=== PATIENT | female | born 1935 | race Caucasian/White ===

== ENCOUNTER 2018-12-24 19:15 | Inpatient (IN) | payer MEDICARE ==
[~2018-12-24] VITALS: Ht 170.2 cm; Wt 59.0 kg
[~2018-12-24 19:15] MED LIST changes: -IOPAMIDOL 370 MG/ML 200 ML INFUS..BTL INJ ONE; -SODIUM CHLORIDE 0.9% 50ML 50 ML ONE; -XARELTO15 MG PO; -XARELTO20 MG PO
--- OUTSIDE RECORDS SUMMARY | 2018-12-24 19:17 | XMS REPORT ---
Author [facility] Address Unknown Phone Unavailable Care Team Providers Care Mechanical Manufacturing Technician Name Role Phone Marcela CHOPRA Unavailable Unavailable Problems This patient has no known problems. Allergies, Adverse Reactions, Alerts This patient has no known allergies or adverse reactions. Medications This patient has no known medications. Results Test Description Test Time Test Comments Text Results Atomic Results Result Comments CT CHEST W 2018-12-24 18:15:00 [place] [address] Patient Name: DEYANIRA FRIEND MR #: [id number] : 1935 Age/Sex: 83/F Req #: [id number] Adm Physician: Ordered by: KAVON CHOPRA MD Report #: [id number] Location: CT Room/Bed: Procedure: [id number] CT/CT CHEST W Exam Date: 12/24/18 Exam Time: 1800 REPORT STATUS: Signed CT CHEST WITH CONTRAST HISTORY: Tachycardia, history of blood clot in left leg, small cell lung cancer, history of appendectomy and hysterectomy COMPARISON: None available. TECHNIQUE: CT scan of the chest WITH intravenous contrast, using PE protocol. The chest was scanned utilizing a multidetector helical scanner from the lung apex through the level of the adrenal glands. Thin section reconstructions were obtained with special concentration on the pulmonary arteries. IV CONTRAST: 100 cc of Isovue-370. PROTOCOL: PE RADIATION DOSE: Total DLP: 454.57 mGy*cm Dose modulation, iterative reconstruction, and/or weight based adjustment of the mA/kV was utilized to reduce the radiation dose to as low as reasonably achievable. COMPLICATIONS: None DISCUSSION: Lungs: * Mild to moderate bilateral upper lung zone predominant centrilobular emphysema. * A confluent 4.8 cm (AP) x 4.1 cm (ML) x 1.7 cm (CC) density within the right lower lobe with irregular margins. * A confluent 2.6 cm (AP) x 3.7 cm (ML) x 2.3 cm (CC) density at the posterior left lung apex abutting the pleural surface with irregular margins and adjacent architectural distortion and bronchiectasis. * Patchy airspace consolidation at the dependent portion of the inferior left lower lobe. Vessels: * Filling defects within arteries within multiple left lower lobe segmental and subsegmental pulmonary arteries on the majority are nonocclusive. * Scattered atherosclerotic vascular calcifications, including the coronary arteries. Airways: Nonspecific bronchial wall thickening. Pleura: Small low-density left pleural effusion. Heart and mediastinum: Trace pericardial fluid, within physiologic limits. Abdomen: Limited evaluation of the upper abdomen. Multiple fluid densities within the liver, the largest 1.5 cm within the left lobe and additional too small to characterize hypodensities, statistically most likely additional small cysts. Splenomegaly. Lymph nodes: No pathologically enlarged lymph node. Bones: Diffusely decreased mineralization of the osseous structures limits bone detail. Multifocal degenerative changes. No aggressive osseous lesion. Soft tissues: Unremarkable IMPRESSION: 1. Pulmonary emboli within segmental and subsegmental arteries of the left lower lobe. 2. Left lower lobe patchy airspace opacity and adjacent small effusion, may reflect an area of associated evolving pulmonary infarction. 3. Indeterminant confluent mass like densities within the right lower lobe and posterior aspect of the left upper lobe, after resolution of the acute process, recommend short-term surveillance follow-up CT to evaluate for resolution. The differential diagnosis includes scarring, evolving infectious/inflammatory process, local recurrence or metastatic disease. 4. Coronary atherosclerosis. A contact phone number for the ordering provider was not easily accessible by the hospital radiology staff. Therefore, Dr. Gordon from the Emergency Department was notified via phone on December 24, 2018 at 1852, per request, the technologists were subsequently asked to transport the patient to the Emergency Department for a higher level of monitoring and subsequent treatment per the Emergency Department. Signed by: Dr. Karime Bower D.O., M.M.M. on 12/24/2018 6:57 PM Dictated By: KARIME BOWER DO 56 Transcribed By: SHAHAB on 12/24/181856 COPY TO: KAVON CHOPRA MD
--- OUTSIDE RECORDS SUMMARY | 2018-12-24 19:17 | XMS REPORT | Clinical Summary ---
Author Author [facility] Address Unknown Phone Unavailable Care Team Providers Care Pvc Monitor Name Role Phone Nate Mcneil MD PCP Allergies Comments Active Allergy Reactions Severity Noted Date Penicillins 06/06/2018 Sulfa (Sulfonamide 06/06/2018 Antibiotics) Medications End Date Status Medication Sig Dispensed Refills Start Date Active lisinopril Take 5 mg by 0 (PRINIVIL,ZESTRIL) 5 mg mouth daily. tablet 07/07/2018 atorvastatin (LIPITOR) 10 Take 1 tablet 30 tablet 0 MG tablet (10 mg total) 8 by mouth nightly for 30 days. 07/08/2018 pantoprazole (PROTONIX) Take 1 tablet 30 tablet 0 40 MG EC tablet (40 mg total) 8 by mouth daily for 30 days. 07/08/2018 isosorbide mononitrate Take 1 tablet 30 tablet 0 (IMDUR) 30 MG 24 hr (30 mg total) 8 tablet by mouth daily for 30 days. 06/11/2018 azithromycin (ZITHROMAX) Take 2 6 tablet 0 250 MG tablet tablets the 8 first day, then 1 tablet daily for 4 days. Active Problems Problem Noted Date Chest pain 06/06/2018 Encounters Care Team Description Date Type Specialty Adelia Montalvo MD Kohlnhofer, Matthew, MD Teqwimuah, Remy, DO Chest pain, unspecified type (Primary Dx) 06/06/2018 Emergency General Internal Medicine - 06/07/2018 after 12/23/2017 Family History Medical History Relation Name Comments Heart disease Brother Anemia Father No Known Problems Mother Relation Name Status Comments Brother Father Mother Social History Date Tobacco Use Types Packs/Day Years Used Quit: 09/14/2012 Former Smoker Smokeless Tobacco: Never Used Alcohol Use Drinks/Week oz/Week Comments Defer Sex Assigned at Date Recorded Not on file Industry Job Start Date Occupation Not on file Not on file Not on file Travel End Travel History Travel Start No recent travel history available. Last Filed Vital Signs Time Taken Vital Sign Reading 06/07/2018 11:50 AM CDT Blood Pressure 108/55 06/07/2018 11:50 AM CDT Pulse 81 06/07/2018 11:50 AM CDT Temperature 36.6 C (97.9 F) 06/07/2018 11:50 AM CDT Respiratory Rate 17 06/07/2018 11:50 AM CDT Oxygen Saturation 98% - Inhaled Oxygen - Concentration 06/06/2018 6:47 AM CDT Weight 27.4 kg (60 lb 4.8 oz) 06/06/2018 6:47 AM CDT Height 167.6 cm (5' 6") 06/06/2018 6:47 AM CDT Body Mass Index 9.73 Plan of Treatment Health Maintenance Due Date Last Done Comments SHINGLES VACCINES (#1) 1987 65+ PNEUMOCOCCAL VACCINE 2002 (1 of 2 - PCV13) PNEUMOCOCCAL 2002 POLYSACCHARIDE VACCINE AGE 65 AND OVER INFLUENZA VACCINE 05/08/2018 Procedures Comments Procedure Name Priority Date/Time Associated Diagnosis NM MYOCARDIAL PERFUSION Routine 06/07/2018 REST STRESS 1 DAY 11:01 AM CDT CV STRESS TEST NUCLEAR Routine 06/07/2018 CARDIO 11:01 AM CDT ECG 12-LEAD Routine 06/07/2018 6:55 AM CDT ZZESTIMATED GFR Routine 06/07/2018 4:30 AM CDT HC COMPLETE BLD COUNT Routine 06/07/2018 W/AUTO DIFF 4:30 AM CDT BASIC METABOLIC PANEL Routine 06/07/2018 4:30 AM CDT ECG 12-LEAD Routine 06/06/2018 5:00 PM CDT ECHOCARDIOGRAM 2D Routine 06/06/2018 COMPLETE W MMODE SPECTRAL 4:35 PM CDT COLOR DOPPLER ([id number]) TROPONIN Timed 06/06/2018 2:49 PM CDT ECG 12-LEAD Routine 06/06/2018 12:33 PM CDT TROPONIN Timed 06/06/2018 10:47 AM CDT URINALYSIS SCREEN AND Routine 06/06/2018 MICROSCOPY, WITH REFLEX 8:[address] TO CULTURE [address] ANGIOGRAM PE CHEST STAT 06/06/2018 8:28 AM CDT XR CHEST 1 VW PORTABLE STAT 06/06/2018 7:05 AM CDT LIPID PANEL Routine 06/06/2018 6:48 AM CDT TROPONIN STAT 06/06/2018 6:48 AM CDT MANUAL DIFFERENTIAL STAT 06/06/2018 6:48 AM CDT ZZESTIMATED GFR STAT 06/06/2018 6:48 AM CDT B NATRIURETIC PEPTIDE STAT 06/06/2018 6:48 AM CDT COMPREHENSIVE METABOLIC STAT 06/06/2018 PANEL 6:48 AM CDT CREATINE KINASE, TOTAL STAT 06/06/2018 (CPK) 6:48 AM CDT D-DIMER STAT 06/06/2018 6:48 AM CDT CBC WITH PLATELET AND STAT 06/06/2018 DIFFERENTIAL 6:48 AM CDT ECG 12-LEAD STAT 06/06/2018 6:41 AM CDT ECG ED PRELIMINARY Routine 06/06/2018 INTERPRETATION 6:37 AM CDT after 12/23/2017 Results * Cv stress procedure (06/07/2018 11:01 AM CDT) Resting HR 83 [facility] Resting BP 121 [facility] Peak MET Achieved 1.0 [facility] Protocol Name KARINA [facility] MUSE Time in Exercise Phase 00:01:00 [facility] Max Systolic BP 133 [facility] Max Diastolic BP 57 [facility] Max Heart Rate 105 [facility] Max Predicted Heart Rate 139 [facility] Target HR Formula (220 - Age)*100% [facility] Test Indication [facility] Arrhy During Ex [facility] ECG Interp Before EX [facility] ECG Interp During Ex [facility] Ex Summary Comment [facility] MUSE Overall HR Response to [facility] Exercise Overall BP Response To [facility] Exercise Reason for Termination [facility] Stress Test Impression -Waveform interpreted in [facility] MUSE report associated with image study. No interpretation is provided as part of this Stress ECG report.- Performing Organization Address [facility] Phone Number [facility] MUSE [address] [place] [address] * Myocardial perfusion (06/07/2018 11:01 AM CDT) Target HR 118.15 bpm [facility] Resting HR 83 BPM [facility] Resting BP 121/60 mmHg [facility] Narrative Performed At [facility] There are no perfusion defects. The study is normal. Study Quality: good. SPECT images demonstrate a normal perfusion study. Normal left ventricular systolic function. Performing Organization Address [facility] Phone Number [facility] [address] [place] [address] * ECG 12 lead (06/07/2018 6:55 AM CDT) Only the most recent of 4 results within the time period is included. Ventricular rate 85 [facility] Atrial rate 85 [facility] IN interval 160 [facility] QRSD interval 114 [facility] QT interval 414 [facility] QTC interval 492 [facility] P axis 1 55 [facility] QRS axis 1 -52 [facility] T wave axis 165 [facility] MUSE EKG impression Normal sinus rhythm-Left axis [facility] MUSE deviation-Left ventricular hypertrophy with repolarization abnormality-Inferior infarct (cited on or before 06-JUN-2018)-Anteroseptal infarct (cited on or before 06-JUN-2018)-Abnormal ECG- Performing Organization Address City/State/Zipcode Phone Number [facility] [address] [place] [address] * Estimated GFR (06/07/2018 4:30 AM CDT) Only the most recent of 2 results within the time period is included. GFR Non Af Amer >90 mL/min/1.73 m2 [facility] DEPARTMENT OF PATHOLOGY AND GENOMIC MEDICINE GFR Af Amer >90 mL/min/1.73 m2 [facility] DEPARTMENT OF Comment: PATHOLOGY AND Chronic kidney disease: <60 GENOMIC MEDICINE mL/min/1.73m2 Kidney failure: <15 mL/min/1.73m2 The estimated GFR is calculated from the IDMS-traceable Modification of Diet in Renal Disease Equation. The accuracy of the calculation is poor when the creatinine is normal. Calculated values >90 mL/min/1.73m2 are not reported. This equation has not been validated in children (<18 years), women, the elderly (>70 years), or ethnic groups other than Caucasians and Americans. Specimen Plasma specimen Performing Organization Address City/State/Zipcode Phone Number [facility] [address] [place] [address] PATHOLOGY AND [facility] * CBC with platelet and differential (06/07/2018 4:30 AM CDT) Only the most recent of 2 results within the time period is included. WBC 18.01 (H) 4.50 - 11.00 k/uL [facility] DEPARTMENT OF PATHOLOGY AND GENOMIC MEDICINE RBC 6.07 (H) 4.20 - 5.50 m/uL [facility] DEPARTMENT OF PATHOLOGY AND GENOMIC MEDICINE HGB 16.8 (H) 12.0 - 16.0 g/dL [facility] DEPARTMENT OF PATHOLOGY AND GENOMIC MEDICINE HCT 51.7 (H) 37.0 - 47.0 % [facility] DEPARTMENT OF PATHOLOGY AND GENOMIC MEDICINE MCV 85.2 82.0 - 100.0 fL [facility] DEPARTMENT OF PATHOLOGY AND GENOMIC MEDICINE MCH 27.7 27.0 - 34.0 pg [facility] DEPARTMENT OF PATHOLOGY AND GENOMIC MEDICINE MCHC 32.5 31.0 - 37.0 g/dL [facility] DEPARTMENT OF PATHOLOGY AND GENOMIC MEDICINE RDW - SD 47.0 37.0 - 55.0 fL [facility] DEPARTMENT OF PATHOLOGY AND GENOMIC MEDICINE MPV 10.4 8.8 - 13.2 fL [facility] DEPARTMENT OF PATHOLOGY AND GENOMIC MEDICINE Platelet count 327 150 - 400 k/uL [facility] DEPARTMENT OF PATHOLOGY AND GENOMIC MEDICINE Nucleated RBC 0.00 /100 WBC [facility] DEPARTMENT OF PATHOLOGY AND GENOMIC MEDICINE Neutrophils 77.0 (H) 39.0 - 69.0 % [facility] DEPARTMENT OF PATHOLOGY AND GENOMIC MEDICINE Lymphocytes 4.6 (L) 25.0 - 45.0 % [facility] DEPARTMENT OF PATHOLOGY AND GENOMIC MEDICINE Monocytes 9.6 0.0 - 10.0 % [facility] DEPARTMENT OF PATHOLOGY AND GENOMIC MEDICINE Eosinophils 3.4 0.0 - 5.0 % [facility] DEPARTMENT OF PATHOLOGY AND GENOMIC MEDICINE Basophils 0.8 0.0 - 1.0 % [facility] DEPARTMENT PATHOLOGY AND GENOMIC MEDICINE Specimen Blood Performing Organization Address City/[facility] Phone Number [address] [place] [address] PATHOLOGY [facility] * Basic metabolic panel (06/07/2018 4:30 AM CDT) Sodium 143 135 - 148 mEq/L [facility] DEPARTMENT OF PATHOLOGY AND GENOMIC MEDICINE Potassium 4.3 3.5 - 5.0 mEq/L [facility] DEPARTMENT OF PATHOLOGY AND GENOMIC MEDICINE Chloride 108 98 - 112 mEq/L [facility] DEPARTMENT OF PATHOLOGY AND GENOMIC MEDICINE CO2 23 (L) 24 - 31 mEq/L [facility] DEPARTMENT OF PATHOLOGY AND GENOMIC MEDICINE Anion gap 12@ANIO 7 - 15 mEq/L [facility] DEPARTMENT OF PATHOLOGY AND GENOMIC MEDICINE BUN 15 8 - 23 mg/dL [facility] DEPARTMENT OF PATHOLOGY AND GENOMIC MEDICINE Creatinine 0.6 0.5 - 0.9 mg/dL [facility] DEPARTMENT OF PATHOLOGY AND GENOMIC MEDICINE Glucose 100 (H) 65 - 99 mg/dL [facility] DEPARTMENT PATHOLOGY AND GENOMIC MEDICINE Calcium 9.0 8.8 - 10.2 mg/dL [facility] DEPARTMENT PATHOLOGY AND GENOMIC MEDICINE Specimen Plasma specimen Performing Organization Address [facility] Phone Number [address] * Echocardiogram complete w contrast and 3D if needed (06/06/2018 4:35 PM CDT) Velocity Ratio (V1/V2) 0.94 m/s [facility] IVS,d 1.38 cm [facility] Ao root annulus 3.23 cm [facility] EF 62.37 % [facility] LVPWD,d 1.01 cm [facility] AoV Mean PG 2.54 mmHg [facility] AV LVOT peak gradient 3.64 mmHg [facility] MV valve area p 1/2 4.50 cm2 [facility] method E/A ratio 0.58 [facility] E wave decelartion time 144.41 msec [facility] LVOT Diam,S 1.90 cm [facility] LVOT area 2.83 cm2 [facility] LVOT Vmax 0.95 m/s [facility] LVOT VTI 0.20 m [facility] AoV Peak PG 4.07 mmHg [facility] MV Peak E Joel 0.69 m/s [facility] MV stenosis pressure 1/2 48.94 ms [facility] time MV Peak A Joel 1.19 m/s [facility] AoV Area, Vmax 2.67 cm2 [facility] AoV Area, VTI 2.64 cm2 [facility] AoV Vmax 1.01 m/s [facility] LV,d 2.54 cm [facility] LV,s 1.72 cm [facility] RVSP (TR) 21.94 mmHg [facility] TR Vpeak 2.06 mm/s [facility] MV E A ratio 0.58 mmHg [facility] RA pressure 5.00 mmHg [facility] TR pk grad 16.94 mmHg [facility] RVSP 31.94 mmHg [facility] LV SYS VOL 8.70 ml [facility] LV ESCOTO VOL 23.12 ml [facility] LA diam s 2.80 cm [facility] LV SV Teich 2D 14.42 ml [facility] LVOT SI 30.25 ml/m2 [facility] AoV Cusp sep 1.67 [facility] Aortic Root 3.20 cm [facility] AoV Vmn 0.77 [facility] IVS s 2D 1.53 [facility] LA Ao Ratio Mmode 0.86 [facility] D E excurs 1.10 [facility] E f slope 0.07 [facility] E prime lat 0.04 [facility] E nasim sept 0.05 [facility] PV acc T slope 5.60 [facility] PV AT 128.03 msec [facility] AoV VTI 0.21 m [facility] LVOT Vmn 0.69 [facility] Pt Size 167.64 [facility] Pt Wt 72.57 [facility] LVOT mean grad 2.12 mmHg [facility] LVPW s PLAX 1.60 cm [facility] MV Decel slope 4.75 m/s2 [facility] Narrative Performed At [facility] The left ventricle chamber size is normal. Left Ventricular ejection fraction is 55 - 60%. There is mild left ventricular No pericardial effusion Performing Organization Address City/State/Zipcode Phone Number [facility] [address] [place] [address] * Troponin (06/06/2018 2:49 PM CDT) Only the most recent of 3 results within the time period is included. Troponin <0.300 0.000 - 0.300 ng/mL [facility] DEPARTMENT OF Comment: PATHOLOGY AND 0.30 - 1.49 GENOMIC MEDICINE ng/mlMay indicate increased risk of acute coronary syndrome. >=1.5 ng/ml Consistent with acute myocardial infarction. The diagnostic value of a single normal or non-diagnostic result is questionable.Serial samples at 2-6 hour intervals are required to rule out acute myocardial injury. Specimen Plasma specimen Performing Organization Address City/[facility] Phone Number [facility] [address] [place] [address] PATHOLOGY AND GENOMIC MEDICINE * Urinalysis screen and microscopy, with reflex to culture (06/06/2018 8:47 AM CDT) Specimen site Clean catch [facility] DEPARTMENT OF PATHOLOGY AND GENOMIC MEDICINE Color, UA Straw [facility] DEPARTMENT OF PATHOLOGY AND GENOMIC MEDICINE Appearance, UA Clear [facility] DEPARTMENT OF PATHOLOGY AND GENOMIC MEDICINE Specific gravity, UA 1.006 1.001 - 1.035 [facility] DEPARTMENT OF PATHOLOGY AND GENOMIC MEDICINE pH, UA 7.0 5.0 - 8.5 [facility] DEPARTMENT OF PATHOLOGY AND GENOMIC MEDICINE Protein, UA Negative Negative [facility] DEPARTMENT OF PATHOLOGY AND GENOMIC MEDICINE Glucose, UA Negative Negative [facility] DEPARTMENT OF PATHOLOGY AND GENOMIC MEDICINE Ketones, UA Negative Negative [facility] DEPARTMENT OF PATHOLOGY AND GENOMIC MEDICINE Bilirubin, UA Negative Negative [facility] DEPARTMENT OF PATHOLOGY AND GENOMIC MEDICINE Blood, UA Negative Negative [facility] DEPARTMENT OF PATHOLOGY AND GENOMIC MEDICINE Nitrite, UA Negative Negative [facility] DEPARTMENT OF PATHOLOGY AND GENOMIC MEDICINE Urobilinogen, UA Negative <2.0 [facility] DEPARTMENT OF PATHOLOGY AND GENOMIC MEDICINE Leukocyte esterase, UA Negative Negative [facility] DEPARTMENT OF PATHOLOGY AND GENOMIC MEDICINE Epithelial cells, UA Few /HPF [facility] DEPARTMENT OF PATHOLOGY AND GENOMIC MEDICINE Round epithelial cells, Few 0 - 1 /HPF [facility] DEPARTMENT [facility] PATHOLOGY AND GENOMIC MEDICINE WBC, UA 0-5 0 - 4 /HPF [facility] DEPARTMENT OF PATHOLOGY AND GENOMIC MEDICINE RBC, UA 0-5 0 - 5 /HPF [facility] DEPARTMENT OF PATHOLOGY AND GENOMIC MEDICINE Bacteria, UA Trace None seen [facility] DEPARTMENT OF PATHOLOGY AND GENOMIC MEDICINE Yeast, UA None seen [facility] DEPARTMENT OF PATHOLOGY AND GENOMIC MEDICINE Yeast with pseudohyphae, None seen [facility] PATHOLOGY AND GENOMIC MEDICINE Specimen Urine Performing Organization Address City/State/Zipcode Phone Number [facility] [address] [place] [address] PATHOLOGY AND GENOMIC MEDICINE * CT Angiogram Pe Chest (06/06/2018 8:28 AM CDT) Narrative Performed At CT ANGIOGRAM PE CHEST [facility] INDICATION:PE suspectedintermediate probpositive D-dimer TECHNIQUE: Multidetector CT of the chest with attention to the pulmonary arteries was performed following the intravenous administration of iodinated contrast with automated exposure control and/or iterative reconstruction techniques to radiation dose.Post-processed 3D MIP images were also performed for CT angiography. COMPARISON:None FINDINGS: PULMONARY ARTERIES:The pulmonary arteries are diagnostically opacified without findings for acute pulmonary embolus. HEART AND GREAT ARTERIES:The heart is normal in size without pericardial effusion. The aorta and arch vessels are poorly opacified given bolus timing but appear normal in caliber without acute abnormality, moderate atherosclerotic calcific plaques noted. MEDIASTINUM AND CEFERINO: No mass or hematoma is identified.No enlarged lymph nodes are seen.Trachea and central airways are patent. LUNGS:Areas of confluent pleural parenchymal scarring are present with bronchiectasis in the posterior left upper lobe, peripheral similar changes noted in the right upper lobe of much milder involvement. There is linear airspace consolidation in the superior segment of the right lower lobe atypical for pneumonia though possible, atelectasis however also atypical given groundglass and irregularity of borders; short-term radiographic follow-up recommended. Mild changes of COPD. PLEURA: No pneumothorax or effusion. CHEST WALL:Unremarkable. VISUALIZED ABDOMEN: Multiple low-density cysts are present through the liver. Spleen is mildly enlarged. IMPRESSION: 1. Negative CT for PE. 2. Mild COPD with areas of probable scarring, pneumonitis thought less likely. Short-term radiographic follow-up recommended. 3. Other findings as described. Thank you for allowing us to participate in the care of your patient. [id number] Procedure Note Hm Interface, Radiology Results Incoming - 06/06/2018 8:[address] ANGIOGRAM PE CHEST INDICATION: PE suspected intermediate prob positive D-dimer TECHNIQUE: Multidetector CT of the chest with attention to the pulmonary arteries was performed following the intravenous administration of iodinated contrast with automated exposure control and/or iterative reconstruction techniques to radiation dose. Post-processed 3D MIP images were also performed for CT angiography. COMPARISON: None FINDINGS: PULMONARY ARTERIES: The pulmonary arteries are diagnostically opacified without findings for acute pulmonary embolus. HEART AND GREAT ARTERIES: The heart is normal in size without pericardial effusion. The aorta and arch vessels are poorly opacified given bolus timing but appear normal in caliber without acute abnormality, moderate atherosclerotic calcific plaques noted. MEDIASTINUM AND CEFERINO: No mass or hematoma is identified. No enlarged lymph nodes are seen. Trachea and central airways are patent. LUNGS: Areas of confluent pleural parenchymal scarring are present with bronchiectasis in the posterior left upper lobe, peripheral similar changes noted in the right upper lobe of much milder involvement. There is linear airspace consolidation in the superior segment of the right lower lobe atypical for pneumonia though possible, atelectasis however also atypical given groundglass and irregularity of borders; short-term radiographic follow-up recommended. Mild changes of COPD. PLEURA: No pneumothorax or effusion. CHEST WALL: Unremarkable. VISUALIZED ABDOMEN: Multiple low-density cysts are present through the liver. Spleen is mildly enlarged. IMPRESSION: 1. Negative CT for PE. 2. Mild COPD with areas of probable scarring, pneumonitis thought less likely. Short- term radiographic follow-up recommended. 3. Other findings as described. Thank you for allowing us to participate in the care of your patient. [id number] Performing Organization Address City/State/Zipcode Phone Number [facility] [address] [place] [address] * XR Chest 1 Vw Portable (06/06/2018 7:05 AM CDT) Narrative Performed At EXAMINATION:XR CHEST 1 VW PORTABLE [facility] CLINICAL HISTORY:chest pain COMPARISON:There are no prior comparable exams at this institution. IMPRESSION: 1. LINES/TUBES: None. 2.LUNGS: Right midlung and left apical opacities, which likely correspond to patient's known history of lung cancer. There are no prior comparable exams to assess interval change. No evidence of destructive rib lesion to suggest etiology for the patient's chest pain. 3.HEART:Heart size is normal.. 4.PLEURA: No evidence for pleural effusion or pneumothorax.. 5.OTHER: Regional osseous structures appear intact. [id number] Procedure Note Interface, Radiology Results Incoming - 06/06/2018 7:23 AM CDT EXAMINATION: XR CHEST 1 VW PORTABLE CLINICAL HISTORY: chest pain COMPARISON: There are no prior comparable exams at this institution. IMPRESSION: 1. LINES/TUBES: None. 2. LUNGS: Right midlung and left apical opacities, which likely correspond to patient's known history of lung cancer. There are no prior comparable exams to assess interval change. No evidence of destructive rib lesion to suggest etiology for the patient's chest pain. 3. HEART: Heart size is normal.. 4. PLEURA: No evidence for pleural effusion or pneumothorax.. 5. OTHER: Regional osseous structures appear intact. [id number] Performing Organization Address City/State/Zipcode Phone Number [facility] [address] [place] [address] * Manual differential (06/06/2018 6:48 AM CDT) Manual differential PERFORMED [facility] DEPARTMENT OF PATHOLOGY AND GENOMIC MEDICINE Neutrophils 86.0 (H) 39.0 - 69.0 % [facility] DEPARTMENT OF PATHOLOGY AND GENOMIC MEDICINE Lymphocytes 7.0 (L) 25.0 - 45.0 % [facility] DEPARTMENT OF PATHOLOGY AND GENOMIC MEDICINE Monocytes 3.0 0.0 - 10.0 % [facility] DEPARTMENT OF PATHOLOGY AND GENOMIC MEDICINE Eosinophils 1.0 0.0 - 5.0 % [facility] DEPARTMENT OF PATHOLOGY AND GENOMIC MEDICINE Basophils 0.0 0.0 - 1.0 % [facility] DEPARTMENT OF PATHOLOGY AND GENOMIC MEDICINE Metamyelocytes 2 % [facility] DEPARTMENT OF PATHOLOGY AND GENOMIC MEDICINE Myelocytes 1 % [facility] DEPARTMENT OF PATHOLOGY AND GENOMIC MEDICINE Promyelocytes 0 % [facility] DEPARTMENT OF PATHOLOGY AND GENOMIC MEDICINE Platelet slide review Patricia adequate [facility] DEPARTMENT OF PATHOLOGY AND GENOMIC MEDICINE Performing Organization Address City/State/Zipcode Phone Number [address] [place] [address] PATHOLOGY AND [facility] MEDICINE * D-dimer (06/06/2018 6:48 AM CDT) D-dimer 0.54 (H) 0.00 - 0.40 ug/mL FEU [facility] DEPARTMENT OF Comment: PATHOLOGY AND Units are ug/ml Fibrinogen GENOMIC MEDICINE Equivalent Unit. When combined with low clinical probability, D-dimer results of less than 0.5 ug/ml FEU have a good negativepredictive value in excluding PE or DVT. For D-dimer results greater than 0.5ug/ml FEU further testing is indicated if PE or DVT is suspectedclinically. Elevated D-dimer results have been reported in DVT, PE, and DIC cases and may indicate the presence of a clot. D-dimer results may be elevated due to old age, , inflammatory diseases, trauma, post-operative states, sepsis, and malignancies. Specimen Blood Performing Organization Address [facility] Phone Number [address] [place] [address] PATHOLOGY AND [facility] * B natriuretic peptide (06/06/2018 6:48 AM CDT) BNP 45 0 - 100 pg/mL [facility] DEPARTMENT PATHOLOGY AND [facility] MEDICINE Specimen Blood Performing Organization Address [facility] Number [address] [place] [address] PATHOLOGY AND [facility] MEDICINE * Creatine kinase, total (CPK) (06/06/2018 6:48 AM CDT) Creatine kinase 74 26 - 192 U/L [facility] DEPARTMENT OF PATHOLOGY AND GENOMIC MEDICINE Specimen Plasma specimen Performing Organization Address [facility] Phone Number [address] [place] [address] PATHOLOGY AND [facility] MEDICINE * Lipid panel (06/06/2018 6:48 AM CDT) Cholesterol 202 (H) <200 mg/dL [facility] DEPARTMENT OF PATHOLOGY AND GENOMIC MEDICINE Triglycerides 133 <150 mg/dL [facility] DEPARTMENT OF PATHOLOGY AND GENOMIC MEDICINE HDL cholesterol 39 (L) >40 mg/dL [facility] DEPARTMENT OF PATHOLOGY AND GENOMIC MEDICINE LDL cholesterol 147 (H)Comment: Result <100 mg/dL [facility] DEPARTMENT OF obtained by direct LDL PATHOLOGY AND measurement GENOMIC MEDICINE Lipid panel SeeBelow [facility] DEPARTMENT OF interpretation Comment: PATHOLOGY AND Total Cholesterol GENOMIC MEDICINE (mg/dL) <200 Desirable 200-239Borderline -high >=240High Triglycerides (mg/dL) <150 Normal 150-199Borderline -high 200-499High >=500Very high HDL Cholesterol (mg/dL) <40Low (male) <40Low (female) LDL Cholesterol (mg/dL) <100 Optimal 100-129Near or above optimal 130-159Borderline -high 160-189High >=190Very high Risk Catergories that modify LDL goals. Risk Catergories LDL goal (mg/dL) CHD and CHD risk equivalent<100 (10-year risk >20%) Multiple (2+) risk factors <130 (10-year risk=<20%) 0-1 risk factors <160 (<10-year risk) Defining levels of lipids in metabolic syndrome Triglycerides >=150 mg/dL HDL Cholesterol Men <40 mg/dL Women <40 mg/dL Non-HDL cholesterol is a second target for therapy in persons with high triglycerides (>=200 mg/dL) Specimen Plasma specimen Performing Organization Address City/State/Zipcode Phone Number [facility] [place] [place] [address] [place] [address] PATHOLOGY AND GENOMIC MEDICINE * Comprehensive metabolic panel (06/06/2018 6:48 AM CDT) Sodium 138 135 - 148 mEq/L [facility] DEPARTMENT OF PATHOLOGY AND GENOMIC MEDICINE Potassium 4.1 3.5 - 5.0 mEq/L [facility] DEPARTMENT OF PATHOLOGY AND GENOMIC MEDICINE Chloride 100 98 - 112 mEq/L [facility] DEPARTMENT OF PATHOLOGY AND GENOMIC MEDICINE CO2 22 (L) 24 - 31 mEq/L [facility] DEPARTMENT OF PATHOLOGY AND GENOMIC MEDICINE Anion gap 16@ANIO (H) 7 - 15 mEq/L [facility] DEPARTMENT OF PATHOLOGY AND GENOMIC MEDICINE BUN 17 8 - 23 mg/dL [facility] DEPARTMENT OF PATHOLOGY AND GENOMIC MEDICINE Creatinine 0.6 0.5 - 0.9 mg/dL [facility] DEPARTMENT OF PATHOLOGY AND GENOMIC MEDICINE Glucose 178 (H) 65 - 99 mg/dL [facility] DEPARTMENT OF PATHOLOGY AND GENOMIC MEDICINE Calcium 10.7 (H) 8.8 - 10.2 mg/dL [facility] DEPARTMENT OF PATHOLOGY AND GENOMIC MEDICINE Protein 7.0 6.3 - 8.3 g/dL [facility] DEPARTMENT OF Comment: PATHOLOGY AND [place] GENOMIC MEDICINE 4.6-7.0 g/dL 1 week 4.4-7.6 g/dL 7 months-1year 5.1-7.3 g/dL 1-2 years5.6-7 .5 g/dL >3 years6.0-8 .0 g/dL 18-150 6.3-8.3 g/dL Albumin 4.4 3.5 - 5.0 g/dL [facility] DEPARTMENT OF PATHOLOGY AND GENOMIC MEDICINE A/G ratio 1.7 0.7 - 3.8 [facility] DEPARTMENT OF PATHOLOGY AND GENOMIC MEDICINE Alkaline phosphatase 103 35 - 104 U/L [facility] DEPARTMENT OF PATHOLOGY AND GENOMIC MEDICINE AST 24 10 - 35 U/L [facility] DEPARTMENT OF PATHOLOGY AND GENOMIC MEDICINE ALT 23 5 - 50 U/L [facility] DEPARTMENT OF PATHOLOGY AND GENOMIC MEDICINE Total bilirubin 0.4 0.0 - 1.2 mg/dL [facility] DEPARTMENT OF PATHOLOGY AND GENOMIC MEDICINE Specimen Plasma specimen Performing Organization Address City/State/[facility] Phone Number [facility] [place] [address] [place] [address] PATHOLOGY AND GENOMIC MEDICINE * ECG ED Preliminary Interpretation - NOT AN ORDER (06/06/2018 6:37 AM CDT) Narrative Performed At Adelia Gonzalez MD 06/06/20188:31 AM ECG ED Preliminary Interpretation - Not an Order Performed by: ADELIA MONTALVO Authorized by: ADELIA MONTALVO ECG reviewed by ED Physician in the absence of a cardiac nurse specialist: yes Interpretation: Interpretation: abnormal Rate: ECG rate:90 ECG rate assessment: normal Rhythm: Rhythm: sinus rhythm Ectopy: Ectopy: none QRS: QRS axis:Left Conduction: Conduction: abnormal Abnormal conduction: complete LBBB ST segments: ST segments:Normal T waves: T waves: normal after 12/23/2017 Insurance Payer Benefit Subscriber ID Type Phone Address Plan / Group [employer] CIGNA xxxxxxxxxxx O HEALTHS[employer]I NG O MCR ADV Advance Directives Patient has advance care planning documents, and code status on file. For more i nformation, please contact: Gino Wade [address] [place] [address] Date Inactivated Comments Code Status Date Activated 06/07/2018 9:33 PM Full Code 06/06/2018 8:55 AM Code Status decision reached by: Patient
[2018-12-24] MEDS ORDERED: ENOXAPARIN SOD INJ 60 MG/0.6 ML SYR SC STA (19:33)
[2018-12-24] MEDS ORDERED: ONDANSETRON HCL INJ 2MG/ML 2ML 2 MG/ML VIAL IV PRN (20:00)
[2018-12-24] MEDS ORDERED: SODIUM CHLORIDE FLUSH 10 ML SYR INJ PRN (20:00)
[2018-12-24] MEDS ORDERED: ACETAMINOPHEN 325 MG TAB PO PRN (20:00)
[2018-12-24] MEDS ORDERED: DIPHENHYDRAMINE HCL INJ 50 MG/ML VIAL IV PRN (20:00)
[2018-12-24] MEDS ORDERED: CLONIDINE HCL 0.1 MG TAB PO PRN (20:00)
[2018-12-24] MEDS ORDERED: ZOLPIDEM TARTRATE 5 MG TAB PO PRN (20:00)
[2018-12-24] MEDS ORDERED: ENALAPRILAT IV INJ 1.25 MG/ML VIAL IV PRN (20:00)
[2018-12-24] MEDS ORDERED: MORPHINE SULFATE INJ 4 MG/ML INJ 1ML IV PRN (20:15)
[2018-12-24 20:19] LABS: BASOPHILS # (AUTO) 0.3 (0.0-0.1); BASOPHILS % 1.1 % (0.0-1.0); EOSINOPHILS # (AUTO) 0.7 (0.0-0.4); EOSINOPHILS % 2.7 % (0.0-6.0); HEMATOCRIT 50.4 % (34.2-44.1); HEMOGLOBIN 16.4 g/dL (12.0-16.0); LYMPHOCYTES # (AUTO) 0.7 (1.0-3.2); LYMPHOCYTES % 2.6 % (18.0-39.1); MEAN CORPUSCULAR HEMOGLOBIN 25.5 pg (28-32); MEAN CORPUSCULAR HGB CONC 32.5 g/dL (31-35); MEAN CORPUSCULAR VOLUME 78.4 fL (81-99); MONOCYTES # (AUTO) 3.2 (0.2-0.8); MONOCYTES % 11.7 % (4.4-11.3); NEUTROPHILS # (AUTO) 20.1 (2.1-6.9); NEUTROPHILS % 73.9 % (38.7-80.0); PLATELET COUNT 473 x10e3/uL (140-360); RED BLOOD COUNT 6.43 x10e6/uL (3.6-5.1); RED CELL DISTRIBUTION WIDTH 15.9 % (11.7-14.4)
[2018-12-24 20:29] LABS: INR 1.84; PROTHROMBIN TIME 21.9 seconds (11.9-14.5)
--- OUTSIDE RECORDS SUMMARY | 2018-12-24 20:29 | XMS REPORT | Clinical Summary ---
Author Author [employer] Address Unknown Phone Unavailable Care Team Providers Care Ear Muff Assembler Name Role Phone Nate Mcneil MD PCP [...] MMODE SPECTRAL 4:35 PM CDT COLOR DOPPLER ([id number]) TROPONIN Timed 06/06/2018 2:49 PM CDT ECG [...] Achieved 1.0 [facility] Protocol Name KARINA [facility] MUSE Time in Exercise Phase 00:01:00 [facility] [...] During Ex [facility] M[facility] Ex Summary Comment [facility] MUSE Overall HR Response to [facility] MUSE Exercise Overall BP Response To [facility] MUSE Exercise Reason for Termination [facility] Stress Test Impression -Waveform interpreted in [facility] MUSE report associated with image study. No interpretation is provided as part of this Stress ECG report.-Electronically Signed By Ene Brasher MD ([id number]), communications editor Lilian Condon ([id number]) on 06/07/2018 11:11:43 AM Performing Organization Address [facility] [place] Phone Number [facility] MUSE [address] [place] [address] * Myocardial perfusion (06/07/2018 11:01 AM CDT) Target HR 118.15 bpm [facility] Resting HR 83 BPM [facility] Resting BP 121/60 mmHg [facility] Narrative Performed At [facility] There are no perfusion defects. The study is normal. Study Quality: good. SPECT images demonstrate a normal perfusion study. Normal left ventricular systolic function. Performing Organization Address [facility] [place] Phone Number [facility] [address] [place] [address] * ECG 12 lead (06/07/2018 6:55 AM CDT) Only the most recent of 4 results within the time period is included. Ventricular rate 85 [facility] Atrial rate 85 [facility] CA interval 160 [facility] QRSD interval 114 [facility] QT interval 414 [facility] QTC interval 492 [facility] P axis 1 55 [facility] QRS axis 1 -52 [facility] T wave axis 165 [facility] MUSE EKG impression Normal sinus rhythm-Left axis [facility] MUSE deviation-Left ventricular hypertrophy with repolarization abnormality-Inferior infarct (cited on or before 06-JUN-2018)-Anteroseptal infarct (cited on or before 06-JUN-2018)-Abnormal ECG- Performing Organization Address City/State/Zipcode Phone Number [facility] [place] [address] [place] [address] * Estimated GFR (06/07/2018 4:30 AM CDT) Only the most recent of 2 results within the time period is included. GFR Non Af Amer >90 mL/min/1.73 m2 [facility] DEPARTMENT OF PATHOLOGY AND GENOMIC MEDICINE GFR Af Amer >90 mL/min/1.73 m2 [facility] DEPARTMENT OF Comment: PATHOLOGY AND Chronic kidney [...] specimen Performing Organization Address City/State/Zipcode Phone Number [facility] [address] [place] [address] [facility] * CBC with platelet and differential (06/07/2018 4:30 AM CDT) Only the most recent of 2 results within the time period is included. WBC 18.01 (H) 4.50 - 11.00 k/uL [facility] DEPARTMENT OF PATHOLOGY AND GENOMIC MEDICINE RBC 6.07 (H) 4.20 - 5.50 m/uL [facility] DEPARTMENT OF PATHOLOGY AND GENOMIC MEDICINE HGB 16.8 (H) 12.0 - 16.0 g/dL [facility] DEPARTMENT OF PATHOLOGY AND GENOMIC MEDICINE HCT 51.7 (H) 37.0 - 47.0 % [facility] DEPARTMENT OF PATHOLOGY AND GENOMIC MEDICINE MCV 85.2 82.0 - 100.0 fL [facility] DEPARTMENT OF PATHOLOGY AND GENOMIC MEDICINE MCH 27.7 27.0 - 34.0 pg [facility] DEPARTMENT OF PATHOLOGY AND GENOMIC MEDICINE MCHC 32.5 31.0 - 37.0 g/dL [facility] DEPARTMENT OF PATHOLOGY AND GENOMIC MEDICINE RDW - SD 47.0 37.0 - 55.0 fL [facility] DEPARTMENT OF PATHOLOGY AND GENOMIC MEDICINE MPV 10.4 8.8 - 13.2 fL [facility] DEPARTMENT OF PATHOLOGY AND GENOMIC MEDICINE Platelet count 327 150 - 400 k/uL [facility] DEPARTMENT OF PATHOLOGY AND GENOMIC MEDICINE Nucleated RBC 0.00 /100 WBC [facility] DEPARTMENT OF PATHOLOGY AND GENOMIC MEDICINE Neutrophils 77.0 (H) 39.0 - 69.0 % [facility] DEPARTMENT OF PATHOLOGY AND GENOMIC MEDICINE Lymphocytes 4.6 (L) 25.0 - 45.0 % [facility] DEPARTMENT OF PATHOLOGY AND GENOMIC MEDICINE Monocytes 9.6 0.0 - 10.0 % [facility] DEPARTMENT OF PATHOLOGY AND GENOMIC MEDICINE Eosinophils 3.4 0.0 - 5.0 % [facility] DEPARTMENT OF PATHOLOGY AND GENOMIC MEDICINE Basophils 0.8 0.0 - 1.0 % [facility] DEPARTMENT PATHOLOGY AND GENOMIC MEDICINE Specimen Blood Performing Organization Address City/[facility] Phone Number [address] [place] [address] PATHOLOGY [facility] * Basic metabolic panel (06/07/2018 4:30 AM CDT) Sodium 143 135 - 148 mEq/L [facility] DEPARTMENT OF PATHOLOGY AND GENOMIC MEDICINE Potassium 4.3 3.5 - 5.0 mEq/L [facility] DEPARTMENT OF PATHOLOGY AND GENOMIC MEDICINE Chloride 108 98 - 112 mEq/L [facility] DEPARTMENT OF PATHOLOGY AND GENOMIC MEDICINE CO2 23 (L) 24 - 31 mEq/L [facility] DEPARTMENT OF PATHOLOGY AND GENOMIC MEDICINE Anion gap 12@ANIO 7 - 15 mEq/L [facility] DEPARTMENT OF PATHOLOGY AND GENOMIC MEDICINE BUN 15 8 - 23 mg/dL [facility] DEPARTMENT OF PATHOLOGY AND GENOMIC MEDICINE Creatinine 0.6 0.5 - 0.9 mg/dL [facility] DEPARTMENT OF PATHOLOGY AND GENOMIC MEDICINE Glucose 100 (H) 65 - 99 mg/dL [facility] DEPARTMENT PATHOLOGY AND GENOMIC MEDICINE Calcium 9.0 8.8 - 10.2 mg/dL [facility] DEPARTMENT PATHOLOGY AND GENOMIC MEDICINE Specimen Plasma specimen Performing Organization Address [facility] Phone Number [address] * Echocardiogram complete w contrast and [...] effusion Performing Organization Address City/State/Zipcode Phone Number [facility] [address] [place] [address] * Troponin (06/06/2018 2:49 PM CDT) Only the most recent of 3 results within the time period is included. Troponin <0.300 0.000 - 0.300 ng/mL [facility] DEPARTMENT OF Comment: PATHOLOGY AND 0.30 - 1.49 GENOMIC MEDICINE ng/mlMay indicate increased risk of acute coronary syndrome. >=1.5 ng/ml Consistent with acute myocardial infarction. The diagnostic value of a single normal or non-diagnostic result is questionable.Serial samples at 2-6 hour intervals are required to rule out acute myocardial injury. Specimen Plasma specimen Performing Organization Address City/[facility] Phone Number [facility] [address] [place] [address] PATHOLOGY AND GENOMIC MEDICINE * Urinalysis screen and microscopy, with reflex to culture (06/06/2018 8:47 AM CDT) Specimen site Clean catch [facility] DEPARTMENT OF PATHOLOGY AND GENOMIC MEDICINE Color, UA Straw [facility] DEPARTMENT OF PATHOLOGY AND GENOMIC MEDICINE Appearance, UA Clear [facility] DEPARTMENT OF PATHOLOGY AND GENOMIC MEDICINE Specific gravity, UA 1.006 1.001 - 1.035 [facility] DEPARTMENT OF PATHOLOGY AND GENOMIC MEDICINE pH, UA 7.0 5.0 - 8.5 [facility] DEPARTMENT OF PATHOLOGY AND GENOMIC MEDICINE Protein, UA Negative Negative [facility] DEPARTMENT OF PATHOLOGY AND GENOMIC MEDICINE Glucose, UA Negative Negative [facility] DEPARTMENT OF PATHOLOGY AND GENOMIC MEDICINE Ketones, UA Negative Negative [facility] DEPARTMENT OF PATHOLOGY AND GENOMIC MEDICINE Bilirubin, UA Negative Negative [facility] DEPARTMENT OF PATHOLOGY AND GENOMIC MEDICINE Blood, UA Negative Negative [facility] DEPARTMENT OF PATHOLOGY AND GENOMIC MEDICINE Nitrite, UA Negative Negative [facility] DEPARTMENT OF PATHOLOGY AND GENOMIC MEDICINE Urobilinogen, UA Negative <2.0 [facility] DEPARTMENT OF PATHOLOGY AND GENOMIC MEDICINE Leukocyte esterase, UA Negative Negative [facility] DEPARTMENT OF PATHOLOGY AND GENOMIC MEDICINE Epithelial cells, UA Few /HPF [facility] DEPARTMENT OF PATHOLOGY AND GENOMIC MEDICINE Round epithelial cells, Few 0 - 1 /HPF [facility] DEPARTMENT [facility] PATHOLOGY AND GENOMIC MEDICINE WBC, UA 0-5 0 - 4 /HPF [facility] DEPARTMENT OF PATHOLOGY AND GENOMIC MEDICINE RBC, UA 0-5 0 - 5 /HPF [facility] DEPARTMENT OF PATHOLOGY AND GENOMIC MEDICINE Bacteria, UA Trace None seen [facility] DEPARTMENT OF PATHOLOGY AND GENOMIC MEDICINE Yeast, UA None seen [facility] DEPARTMENT OF PATHOLOGY AND GENOMIC MEDICINE Yeast with pseudohyphae, None seen [facility] PATHOLOGY AND GENOMIC MEDICINE Specimen Urine Performing Organization Address City/State/Zipcode Phone Number [facility] [address] [place] [address] PATHOLOGY AND GENOMIC MEDICINE * CT Angiogram [...] participate in the care of your patient. [facility]-[id number] Procedure Note Hm Interface, Radiology Results Incoming [...] participate in the care of your patient. [facility]-[id number] Performing Organization Address City/State/Zipcode Phone Number [facility] [address] [place] [address] * XR Chest 1 Vw Portable (06/06/2018 7:05 AM CDT) Narrative Performed At EXAMINATION:XR CHEST 1 VW PORTABLE [facility] CLINICAL HISTORY:chest pain COMPARISON:There are no prior [...] pneumothorax.. 5.OTHER: Regional osseous structures appear intact. [id number] Procedure Note Interface, Radiology Results Incoming - [...] 5. OTHER: Regional osseous structures appear intact. [id number] Performing Organization Address City/State/Zipcode Phone Number [facility] [address] [place] [address] * Manual differential (06/06/2018 6:48 AM CDT) Manual differential PERFORMED [facility] DEPARTMENT OF PATHOLOGY AND GENOMIC MEDICINE Neutrophils 86.0 (H) 39.0 - 69.0 % [facility] DEPARTMENT OF PATHOLOGY AND GENOMIC MEDICINE Lymphocytes 7.0 (L) 25.0 - 45.0 % [facility] DEPARTMENT OF PATHOLOGY AND GENOMIC MEDICINE Monocytes 3.0 0.0 - 10.0 % [facility] DEPARTMENT OF PATHOLOGY AND GENOMIC MEDICINE Eosinophils 1.0 0.0 - 5.0 % [facility] DEPARTMENT OF PATHOLOGY AND GENOMIC MEDICINE Basophils 0.0 0.0 - 1.0 % [facility] DEPARTMENT OF PATHOLOGY AND GENOMIC MEDICINE Metamyelocytes 2 % [facility] DEPARTMENT OF PATHOLOGY AND GENOMIC MEDICINE Myelocytes 1 % [facility] DEPARTMENT OF PATHOLOGY AND GENOMIC MEDICINE Promyelocytes 0 % [facility] DEPARTMENT OF PATHOLOGY AND GENOMIC MEDICINE Platelet slide review Patricia adequate [facility] DEPARTMENT OF PATHOLOGY AND GENOMIC MEDICINE Performing Organization Address City/State/Zipcode Phone Number [address] [place] [address] PATHOLOGY AND [facility] MEDICINE * D-dimer (06/06/2018 6:48 AM CDT) D-dimer 0.54 (H) 0.00 - 0.40 ug/mL FEU [facility] DEPARTMENT OF Comment: PATHOLOGY AND Units are [...] and malignancies. Specimen Blood Performing Organization Address [facility] [place] Phone Number [address] [place] [address] PATHOLOGY AND [facility] * B natriuretic peptide (06/06/2018 6:48 AM CDT) BNP 45 0 - 100 pg/mL [facility] DEPARTMENT PATHOLOGY AND [facility] MEDICINE Specimen Blood Performing Organization Address [facility] Number [address] [place] [address] PATHOLOGY AND [facility] MEDICINE * Creatine kinase, total (CPK) (06/06/2018 6:48 AM CDT) Creatine kinase 74 26 - 192 U/L [facility] DEPARTMENT OF PATHOLOGY AND GENOMIC MEDICINE Specimen Plasma specimen Performing Organization Address [facility] [place] Phone Number [address] [place] [address] PATHOLOGY AND [facility] MEDICINE * Lipid panel (06/06/2018 6:48 AM CDT) Cholesterol 202 (H) <200 mg/dL [facility] DEPARTMENT OF PATHOLOGY AND GENOMIC MEDICINE Triglycerides 133 <150 mg/dL [facility] DEPARTMENT OF PATHOLOGY AND GENOMIC MEDICINE HDL cholesterol 39 (L) >40 mg/dL [facility] DEPARTMENT OF PATHOLOGY AND GENOMIC MEDICINE LDL cholesterol 147 (H)Comment: Result <100 mg/dL [facility] DEPARTMENT OF obtained by direct LDL PATHOLOGY AND measurement GENOMIC MEDICINE Lipid panel SeeBelow [facility] DEPARTMENT OF interpretation Comment: PATHOLOGY AND Total [...] specimen Performing Organization Address City/State/Zipcode Phone Number [facility] [place] [address] [place] [address] PATHOLOGY AND GENOMIC MEDICINE * Comprehensive metabolic panel (06/06/2018 6:48 AM CDT) Sodium 138 135 - 148 mEq/L [facility] DEPARTMENT OF PATHOLOGY AND GENOMIC MEDICINE Potassium 4.1 3.5 - 5.0 mEq/L [facility] DEPARTMENT OF PATHOLOGY AND GENOMIC MEDICINE Chloride 100 98 - 112 mEq/L [facility] DEPARTMENT OF PATHOLOGY AND GENOMIC MEDICINE CO2 22 (L) 24 - 31 mEq/L [facility] DEPARTMENT OF PATHOLOGY AND GENOMIC MEDICINE Anion gap 16@ANIO (H) 7 - 15 mEq/L [facility] DEPARTMENT OF PATHOLOGY AND GENOMIC MEDICINE BUN 17 8 - 23 mg/dL [facility] DEPARTMENT OF PATHOLOGY AND GENOMIC MEDICINE Creatinine 0.6 0.5 - 0.9 mg/dL [facility] DEPARTMENT OF PATHOLOGY AND GENOMIC MEDICINE Glucose 178 (H) 65 - 99 mg/dL [facility] DEPARTMENT OF PATHOLOGY AND GENOMIC MEDICINE Calcium 10.7 (H) 8.8 - 10.2 mg/dL [facility] DEPARTMENT OF PATHOLOGY AND GENOMIC MEDICINE Protein 7.0 6.3 - 8.3 g/dL [facility] DEPARTMENT OF Comment: PATHOLOGY AND [place] GENOMIC MEDICINE 4.6-7.0 g/dL 1 week 4.4-7.6 g/dL 7 months-1year 5.1-7.3 g/dL 1-2 years5.6-7 .5 g/dL >3 years6.0-8 .0 g/dL 18-150 6.3-8.3 g/dL Albumin 4.4 3.5 - 5.0 g/dL [facility] DEPARTMENT OF PATHOLOGY AND GENOMIC MEDICINE A/G ratio 1.7 0.7 - 3.8 [facility] DEPARTMENT OF PATHOLOGY AND GENOMIC MEDICINE Alkaline phosphatase 103 35 - 104 U/L [facility] DEPARTMENT OF PATHOLOGY AND GENOMIC MEDICINE AST 24 10 - 35 U/L [facility] DEPARTMENT OF PATHOLOGY AND GENOMIC MEDICINE ALT 23 5 - 50 U/L [facility] DEPARTMENT OF PATHOLOGY AND GENOMIC MEDICINE Total bilirubin 0.4 0.0 - 1.2 mg/dL [facility] DEPARTMENT OF PATHOLOGY AND GENOMIC MEDICINE Specimen Plasma specimen Performing Organization Address City/State/[facility] Phone Number [facility] [place] [address] [place] [address] PATHOLOGY AND GENOMIC MEDICINE * ECG ED Preliminary Interpretation - NOT AN ORDER (06/06/2018 6:37 AM CDT) Narrative Performed At Adelia Gonzalez MD 06/06/20188:31 AM ECG ED Preliminary Interpretation - Not an Order Performed by: ADELIA MONTALVO Authorized by: ADELIA MONTALVO ECG reviewed by ED Physician in the absence of a track helper: yes Interpretation: Interpretation: abnormal Rate: ECG rate:90 [...] more i nformation, please contact: Gino Wade [address] [place] [address] Date Inactivated Comments Code Status Date Activated 06/07/2018 9:33 PM Full Code 06/06/2018 8:55 AM Code Status decision reached by: Patient
[2018-12-24 20:30] LABS: PARTIAL THROMBOPLASTIN TIME 57.1 seconds (23.8-35.5)
[2018-12-24 20:39] LABS: ALANINE AMINOTRANSFERASE 18 IU/L (0-55); ALBUMIN 2.9 g/dL (3.5-5.0); ALBUMIN/GLOBULIN RATIO 0.8 (0.8-2.0); ALKALINE PHOSPHATASE 137 IU/L (40-150); BLOOD UREA NITROGEN 22 mg/dL (7-26); BUN/CREATININE RATIO 31 (6-25); CALCIUM 10.2 mg/dL (8.4-10.2); CARBON DIOXIDE 22 mmol/L (22-29); CHLORIDE 105 mmol/L (98-107); CREATINE KINASE 21 IU/L (29-168); CREATININE, SERUM 0.71 mg/dL (0.57-1.11); EST GLOMERULAR FILTRATION RATE > 60 ML/MIN (60-); GLUCOSE 91 mg/dL (74-118); SODIUM 138 mmol/L (136-145)
[2018-12-24 20:54] LABS: EOSINOPHILS % (MANUAL) 1 % (0-7); LYMPHOCYTES % (MANUAL) 3 % (19-48); MONOCYTES % (MANUAL) 5 % (3.4-9.0); NEUTROPHILS % (MANUAL) 85 % (40-74); PLATELET ESTIMATE ADEQUATE; PLATELET MORPHOLOGY COMMENT NORMAL; RBC MORPHOLOGY COMMENT NORMAL
[2018-12-24] MEDS: RIVAROXABAN 15 MG TABLET PO SCH (21:44)
[2018-12-24] MEDS ORDERED: LEVAQUIN500 MG PO (21:53)
--- NOTE | 2018-12-24 22:20 | NUR ---
PT ARRIVED TO THE UNIT FROM ER IN A STRETCHER .AAOX3.NO RESP.DISTRESS.NO PAIN VOICED.TELE # [address]IV LAC [address]ORIENTED TO THE UNIT.PROVIDED SNACKS.LEFT LEG SWOLLEN.BED LOCKED AND IN LOWEST POSITION.PHONE AND CALL LIGHT WITHIN REACH.INSTRUCTED TO CALL FOR ASSISTANCE NEEDED.
[2018-12-24 22:30] VITALS: BP 126/66
[2018-12-24] MEDS ORDERED: FAMOTIDINE 20 MG TAB PO ONE (23:00)
[2018-12-24 23:45] VITALS: BP 133/63
[2018-12-25 04:55] VITALS: BP 120/57
--- NOTE | 2018-12-25 05:00 | NUR ---
PT LYEING QUIETLY IN THE BED . IS AWARE OF THE CONSULTATION.
--- NOTE | 2018-12-25 07:10 | NUR ---
REPORT GIVEN TO THE ONCOMING RN.WALKING ROUNDS DONE.STABLE CONDITION.
[2018-12-25 08:00] VITALS: BP 128/60
[2018-12-25] MEDS: FAMOTIDINE 20 MG TAB PO SCH ×2 (09:35→16:38)
[2018-12-25] MEDS: RIVAROXABAN 15 MG TABLET PO SCH ×2 (09:35→16:38)
--- NOTE | 2018-12-25 10:00 | NUR ---
Patient alert and responsive, OOB and ambulating in the room, denies any resp distress, VSS and afebrile, rounds by attending and put in a discharge order.
[2018-12-25] MEDS ORDERED: XARELTO15 MG PO (10:32)
[2018-12-25] MEDS ORDERED: XARELTO20 MG PO (10:33)
[2018-12-25] MEDS ORDERED: ONDANSETRON HCL 4 MG ORAL DISINTEGRATING TAB PO PRN (10:45)
[2018-12-25] MEDS ORDERED: ONDANSETRON HCL INJ 2MG/ML 2ML 2 MG/ML VIAL IV PRN (11:00)
[2018-12-25] MEDS ORDERED: LEVOFLOXACIN 500 MG TAB PO SCH (11:00)
--- NOTE | 2018-12-25 11:24 | NUR ---
Dr. Noguera wants discharge order to be rescinded due to elevated WBC, patient notified and was started on IV abx.
[2018-12-25] MEDS ORDERED: SODIUM CHLORIDE 0.9% 250ML 250 ML ONE (11:54)
[2018-12-25 12:54] VITALS: BP 132/61
[2018-12-25] MEDS: CEFEPIME 1GM/NS 0.9% 50 ML 50 ML IV SCH ×2 (14:00→21:31)
--- NOTE | 2018-12-25 15:09 | Consultation ---
DATE OF CONSULTATION: 12/25/2018 Cardiology Consultation REASON FOR CONSULTATION: Pulmonary embolism. HISTORY OF PRESENT ILLNESS: This is an 83-year-old woman with history of small cell lung cancer, status post chemotherapy and radiation with recurrence in 2013, currently in remission, who was admitted after CT chest revealed pulmonary emboli. The patient was seen in the office yesterday due to left lower extremity deep vein thrombosis. She had been started on Xarelto the day prior and denied any chest pain, shortness of breath, palpitations, orthopnea, or PND. She denied any recent history or travel that could have provoked her DVT. In the office, she was hypotensive with a blood pressure of 77/59 mmHg and tachycardic with a heart rate of 115. EKG revealed sinus tachycardia. She was given a 250 mL bolus with improvement in her blood pressure to 130/83. Given her presentation, there was concern for pulmonary embolism, stat CT chest was ordered, which she had done yesterday. This revealed segmental and subsegmental left lower lobe pulmonary emboli with left lower lobe patchy airspace opacity and adjacent small pleural effusion, which could reflect an area of associated evolving pulmonary infarction. There were indeterminate confluent mass-like densities in the right lower lobe and posterior aspect of the left upper lobe as well as coronary atherosclerosis. Given these findings, the patient was sent to the ER and admitted for further observation. The patient currently denies chest pain or shortness of breath. Her back pain is improving. REVIEW OF SYSTEMS: Negative except as per HPI. PAST MEDICAL HISTORY: Small cell lung cancer initially diagnosed in September 2012 for which she received chemotherapy and radiation with recurrence in 2013, currently in remission. PAST SURGICAL HISTORY: Hysterectomy. ALLERGIES: PLEASE SEE EMR. MEDICATIONS: Please see medication list. SOCIAL HISTORY: Denies tobacco, alcohol, or illicit drugs. She was a prior smoker, who quit after she was diagnosed with lung cancer. FAMILY HISTORY: Noncontributory to current illness. PHYSICAL EXAMINATION: VITAL SIGNS: Temperature 96.2 degrees, pulse 99, respiratory rate 16, blood pressure 128/60, and oxygen saturation 95% on room air. GENERAL: Elderly woman, in no acute distress, awake and alert, well developed, well nourished. HEENT: Normocephalic, atraumatic. Pupils equal. No scleral icterus. NECK: Supple. No thyromegaly or cervical lymphadenopathy. No carotid bruit. LUNGS: Clear to auscultation bilaterally with no wheezes or crackles. CARDIOVASCULAR: Normal rate. Regular rhythm. No murmur. Normal S1, S2. ABDOMEN: Soft, nontender. EXTREMITIES: 1+ pitting edema on the left. NEUROLOGIC: Nonfocal exam. DIAGNOSTIC DATA: EKG; sinus tachycardia, left axis deviation, and left bundle-branch block. LABORATORY DATA: WBC 27.2, hemoglobin 16.4, hematocrit 50.4, and platelets 473. Sodium 138, potassium 4, chloride 105, CO2 of 22, BUN 22, creatinine 0.71. Troponin less than 0.001. Telemetry, normal sinus rhythm. IMPRESSION: 1. Segmental and subsegmental pulmonary emboli with left lower lobe patchy airspace opacity and adjacent small pleural effusion, which may represent an area of associated evolving pulmonary infarction. 2. Acute left lower extremity deep vein thrombosis. 3. History of small cell lung cancer. 4. Coronary artery disease suggested by coronary atherosclerosis on CT chest. RECOMMENDATIONS: Continue Xarelto 15 mg p.o. b.i.d. Monitor the patient on telemetry. The patient has been hemodynamically stable through the evening. We will ask staff to have the patient ambulate in the hallway. If she feels well, she may be discharged from a cardiac standpoint. Echocardiogram was performed in the office without evidence of RV strain. Recommend continuation of home cardiac medications. Management of the patient's leukocytosis per primary. The patient was advised to follow up with her outpatient oncologist for cancer screening. Thank you for this consult. We will continue to follow. Shannon Saeed MD ABS/MODL /[id number]
--- NOTE | 2018-12-25 15:49 | History and Physical ---
SUBJECTIVE: The patient was sent in by Cardiology for history of acute pulmonary embolism that was diagnosed outpatient. HISTORY OF PRESENT ILLNESS: An 83-year-old female with past medical history of hypertension, hyperlipidemia, who was sent in by her line and frame poler for further evaluation after found to have a pulmonary embolism on imaging studies. The patient was recently diagnosed by her PCP and started on some Xarelto earlier in the week and was sent to Cardiology for further management and care. The patient was then brought in by her line and frame poler to further evaluate. The patient denies any shortness of breath, chest pain, palpitations, nausea, or vomiting. The patient is seen and evaluated at bedside on the Medical floor, currently doing well with no other issues at this time. She was ambulating across the room without complications. She denies any shortness of breath. No recent cough, congestion, fever, or any other recent sickness. REVIEW OF SYSTEMS: Pertinent positives: Positive for pulmonary embolism. Pertinent negatives: Denies any chest pain, palpitation, nausea, vomiting, diarrhea, dysuria, hematuria, frequency, urgency, lightheadedness, dizziness, abdominal pain, headaches, shortness of breath, cough, congestion, fever, or any other complaints. The rest of the 14-point review of systems have been reviewed with the patient and are negative. ALLERGIES: PENICILLINS AND SULFA. HOME MEDICATIONS: Aspirin 81 mg daily, Levaquin 500 mg daily, pravastatin, and recent start of Xarelto. PAST MEDICAL HISTORY: Hypertension, hyperlipidemia, recent diagnosis of pulmonary embolism. PAST SURGICAL HISTORY: Reports none. FAMILY HISTORY: Hypertension and diabetes. SOCIAL HISTORY: No drugs. No alcohol. Does not smoke. Good social support. PHYSICAL EXAMINATION: VITAL SIGNS: Temperature is 96.2, pulse 98, respiratory rate is 16, blood pressure is 120/60, and pulse ox is 96% on room air. GENERAL: Not in acute distress. Alert and oriented x3. Cooperative on examination. HEENT: Head is normocephalic and atraumatic. Eyes; pupils are equal, round, and reactive to light bilaterally. Extraocular movements are intact bilaterally. Throat, no evidence of erythema or exudates in the posterior pharynx. Has poor dentition. NECK: Supple. Good range of motion. PULMONARY: Clear to auscultation bilaterally. No wheezing, no rales, no rhonchi, no crackles appreciated. CARDIOVASCULAR: Positive S1, S2. No murmurs, rubs, or gallops appreciated. ABDOMEN: Soft, nondistended, and nontender to palpation. Bowel sounds present. MUSCULOSKELETAL: Strength is 5/5 throughout. No evidence of any muscle deficits on examination. No weakness appreciated. NEUROLOGICAL: Cranial nerves II through XII are grossly intact. No evidence of any neurological deficits on exam. SKIN: Intact. Warm to touch. Good cap refill. PSYCHIATRIC: Normal affect and mood. EXTREMITIES: No edema. Good range of motion throughout. LABORATORY DATA: Labs show white count was 27, hemoglobin of 16.4, hematocrit is 50, platelets of 473. PTT 21.9, INR 1.8, PTT 57. Chemistry; sodium 138, potassium 4, chloride 105, bicarb 22, anion gap of 15, BUN is 22, creatinine is 0.71, glucose 91, calcium 10.2. LFTs were normal. Troponins were negative. Albumin was 2.9. MICROBIOLOGY: None. IMAGING STUDIES: CT chest shows pulmonary embolism within the segmental and subsegmental arteries of the left. Left lower lobe patchy airspace opacity, adjacent small effusion may reflect an area of associated evolving pulmonary infarction. Indeterminate confluent mass-like densities within the left lower space . The differential includes scarring, evolving infection local recurrence or metastatic disease. IMPRESSION: 1. Acute pulmonary embolism. 2. Leukocytosis, could be multifactorial from probably pneumonia and/or probable pulmonary infarction seen on CT chest leading to elevated white count. 3. Hypertension. 4. History of small cell lung cancer, following up with Dr. Green as an outpatient. PLAN: At this time, Cardiology was consulted to evaluate the patient. CT imaging consistent with pulmonary embolism. Continue with oral Xarelto. The patient is tolerating it well. CT imaging concerning for pulmonary infarction and possibly infection, which I will go ahead and start her on IV cefepime. She does have a white count, she is afebrile, does not have any symptoms, but apparently she was on Levaquin as an outpatient. Her white count was 27. We will get a.m. repeat white count level. She was following up with Dr. Green as an outpatient for her lung cancer and I have already talked to him and he would like for her to come to his office in 1 week. Once again, I cannot explain the white count being of 27 though she is afebrile with no symptoms antibiotics and way CT imaging show, I am concerned she may have an underlying infection or could be reactive from a pulmonary infarction from a pulmonary embolism. At this time, continue with antibiotics and monitor very closely. The patient will likely be here overnight. We will also get a.m. labs. MD KOKO Bennett/ANIA /[id number]
[2018-12-25 16:39] VITALS: BP 136/62
--- NOTE | 2018-12-25 19:03 | NUR ---
WALKING ROUNDS PERFORMED, RECEIVED PT LAYING SEMI FOWLERS IN BED, AAOX3, RR EVEN AND NON-LABORED, ON RA. NO S/SX OF DISTRESS NOTED. LEFT PT LAYING SEMI FOWLERS IN BED, BED IN LOW LOCKED POSITION, SIDE RAILS UPX2, CALL LIGHT AND PHONE WITHIN REACH.
[2018-12-25 20:00] VITALS: BP 145/63
[2018-12-25 20:24] LABS: FREE T4 (FREE THYROXINE) 1.21 ng/dL (0.9-1.8); THYROID STIMULATING HORMONE 0.248 uIU/mL (0.350-4.940)
[2018-12-25 21:43] VITALS: BP 145/63
[2018-12-26] VITALS (7 sets, daily range): BP systolic 92–131; BP diastolic 50–60
[2018-12-26] MEDS: CEFEPIME 1GM/NS 0.9% 50 ML 50 ML IV SCH ×3 (05:47→21:57)
[2018-12-26 06:11] LABS: BASOPHILS # (AUTO) 0.3 (0.0-0.1); BASOPHILS % 1.1 % (0.0-1.0); HEMATOCRIT 47.7 % (34.2-44.1); HEMOGLOBIN 15.1 g/dL (12.0-16.0); LYMPHOCYTES # (AUTO) 0.8 (1.0-3.2); LYMPHOCYTES % 3.3 % (18.0-39.1); MEAN CORPUSCULAR HEMOGLOBIN 25.1 pg (28-32); MEAN CORPUSCULAR HGB CONC 31.7 g/dL (31-35); MEAN CORPUSCULAR VOLUME 79.2 fL (81-99); MONOCYTES # (AUTO) 2.7 (0.2-0.8); MONOCYTES % 11.4 % (4.4-11.3); NEUTROPHILS # (AUTO) 17.4 (2.1-6.9); NEUTROPHILS % 73.4 % (38.7-80.0); PLATELET COUNT 467 x10e3/uL (140-360); RED BLOOD COUNT 6.02 x10e6/uL (3.6-5.1); RED CELL DISTRIBUTION WIDTH 14.8 % (11.7-14.4)
[2018-12-26 06:38] LABS: ANION GAP 11.6 mmol/L (8-16); BLOOD UREA NITROGEN 15 mg/dL (7-26); BUN/CREATININE RATIO 25 (6-25); CALCIUM 8.7 mg/dL (8.4-10.2); CARBON DIOXIDE 23 mmol/L (22-29); CHLORIDE 108 mmol/L (98-107); CREATININE, SERUM 0.61 mg/dL (0.57-1.11); EST GLOMERULAR FILTRATION RATE > 60 ML/MIN (60-); GLUCOSE 99 mg/dL (74-118); POTASSIUM 3.6 mmol/L (3.5-5.1); SODIUM 139 mmol/L (136-145)
[2018-12-26] MEDS: RIVAROXABAN 15 MG TABLET PO SCH ×2 (10:00→17:00)
[2018-12-26] MEDS: FAMOTIDINE 20 MG TAB PO SCH ×2 (10:00→17:00)
[2018-12-26] MEDS: PRAVASTATIN 20 MG TAB PO SCH ×2 (10:00→21:57)
[2018-12-26 12:34] LABS: EOSINOPHILS % (MANUAL) 5 % (0-7); LYMPHOCYTES % (MANUAL) 3 % (19-48); METAMYELOCYTES % (MANUAL) 1 % (0-0); MONOCYTES % (MANUAL) 12 % (3.4-9.0); MYELOCYTES % (MANUAL) 3 % (0-0); NEUTROPHILS % (MANUAL) 75 % (40-74)
[2018-12-26 12:35] LABS: PLATELET ESTIMATE ADEQUATE; PLATELET MORPHOLOGY COMMENT NORMAL; RBC MORPHOLOGY COMMENT NORMAL
--- NOTE | 2018-12-26 13:36 | Progress Note ---
DATE: 12/26/2018 Medicine Progress Note SUBJECTIVE: The patient is doing well today with no complaints. Apparently, she was on Levaquin at home because she is being treated for a complicated urinary tract infection by her PCP. She told this later yesterday in the evening, explains why her white count was 27. OBJECTIVE: VITAL SIGNS: Temperature is 98.4, pulse 90, respiratory rate is 19, blood pressure 131/60, and pulse ox is 97% on room air. GENERAL: Not in acute distress. Alert and oriented x3. Cooperative on examination. HEENT: Head is normocephalic and atraumatic. Eyes; pupils are equal, round, and reactive to light bilaterally. Extraocular movements are intact bilaterally. Throat, no evidence of erythema or exudates in the posterior pharynx. Has poor dentition. NECK: Supple. Good range of motion. PULMONARY: Clear to auscultation bilaterally. No wheezing, no rales, no rhonchi, no crackles appreciated. CARDIOVASCULAR: Positive S1, S2. No murmurs, rubs, or gallops appreciated. ABDOMEN: Soft, nondistended, and nontender to palpation. Bowel sounds present. MUSCULOSKELETAL: Strength is 5/5 throughout. No evidence of any muscle deficits on examination. No weakness appreciated. NEUROLOGICAL: Cranial nerves II through XII grossly intact. No evidence of any neurological deficits on exam. SKIN: Intact. Warm to touch. Good cap refill. PSYCHIATRIC: Normal affect and mood. EXTREMITIES: No edema. Good range of motion throughout. LABS: White count 23, hemoglobin 15, hematocrit of 47, platelets of 467. Coagulation; PT 21, INR 1.8, PTT 57. Sodium 139, potassium 3.2, chloride 108, bicarb 23, anion gap of 11, BUN of 15, creatinine 0.61, calcium 8.7. LFTs within normal. IMAGING STUDIES: None new. IMPRESSION: 1. Acute pulmonary embolism. 2. Leukocytosis, could be from a complicated urinary tract infection and also possibly from underlying pulmonary infarction or from the pulmonary embolism. 3. Hypertension. 4. History of small cell lung cancer. Follow up with Dr. Green as an outpatient. PLAN: At this time, she is breathing much better. She is on Xarelto. She already has Xarelto at home. No refills were needed according to the patient. On further evaluation, the patient reports that she would want antibiotics for her complicated UTI, which her antibiotics were started on yesterday. Her white count did improve to 23, but still elevated. She is afebrile, she is doing well. White count can be elevated from possible pulmonary infarction as well. At this time, I would like to continue with IV antibiotics until her white count improves to normal. Once it is normal then she has been cleared to be discharged home. We are also going to get a hold of the patient's PCP and request a urine culture identification and sensitivities in order for us to discharge on oral antibiotic regimen. MD KOKO Bennett/ANIA /[id number]
--- NOTE | 2018-12-26 16:02 | Progress Note ---
DATE: 12/26/2018 Cardiology Progress Note SUBJECTIVE: The patient denies shortness of breath. She continues to have pleuritic chest pain. OBJECTIVE: VITAL SIGNS: Temperature 98.4 degrees, pulse 90, respiratory rate 19, blood pressure 131/60, oxygen saturation 97% on room air. GENERAL: Awake, alert, in no acute distress. LUNGS: Clear to auscultation bilaterally. No wheezes or crackles. CARDIOVASCULAR: Normal rate, regular rhythm. No murmur. Normal S1, S2. ABDOMEN: Soft, nontender. EXTREMITIES: 1+ pitting edema on the left. CARDIAC MEDICATIONS: Rivaroxaban 15 mg p.o. b.i.d. LABORATORY DATA: WBC 23.64, hemoglobin 15.1, hematocrit 47.7, platelets 467. Sodium 139, potassium 3.6, chloride 108, CO2 of 23, BUN 15, creatinine 0.61. TSH 0.248, free T4 1.21. TELEMETRY: Normal sinus rhythm. IMPRESSION: 1. Segmental and subsegmental pulmonary emboli with left lower lobe patchy airspace opacity, adjacent small pleural effusion, which may represent an area of associated evolving pulmonary infarction. 2. Acute left lower extremity deep venous thrombosis. 3. Leukocytosis. 4. History of small cell lung cancer. 5. Coronary artery disease suggested by coronary atherosclerosis on CT chest. RECOMMENDATIONS: Continue Xarelto 15 mg p.o. b.i.d. Monitor the patient on telemetry while in-house. The patient has been hemodynamically stable. She may be discharged from a cardiac standpoint. Antibiotics per primary service. The patient was counseled on the importance of followup with her outpatient oncologist for age-appropriate cancer screening. Thank you for this consult. We will continue to follow. Shannon Saeed MD ABS/MODL /[id number]
[2018-12-27] VITALS (8 sets, daily range): BP systolic 107–120; BP diastolic 51–58
[2018-12-27] MEDS: CEFEPIME 1GM/NS 0.9% 50 ML 50 ML IV SCH ×3 (05:56→21:28)
[2018-12-27 06:19] LABS: BASOPHILS # (AUTO) 0.3 (0.0-0.1); BASOPHILS % 1.2 % (0.0-1.0); EOSINOPHILS % 4.4 % (0.0-6.0); HEMATOCRIT 51.2 % (34.2-44.1); HEMOGLOBIN 16.1 g/dL (12.0-16.0); LYMPHOCYTES # (AUTO) 0.8 (1.0-3.2); LYMPHOCYTES % 3.2 % (18.0-39.1); MEAN CORPUSCULAR HEMOGLOBIN 24.9 pg (28-32); MEAN CORPUSCULAR HGB CONC 31.4 g/dL (31-35); MEAN CORPUSCULAR VOLUME 79.3 fL (81-99); MONOCYTES # (AUTO) 2.3 (0.2-0.8); MONOCYTES % 9.8 % (4.4-11.3); NEUTROPHILS # (AUTO) 17.5 (2.1-6.9); PLATELET COUNT 504 x10e3/uL (140-360); RED BLOOD COUNT 6.46 x10e6/uL (3.6-5.1); RED CELL DISTRIBUTION WIDTH 15.3 % (11.7-14.4)
[2018-12-27 06:31] LABS: BLOOD UREA NITROGEN 12 mg/dL (7-26); BUN/CREATININE RATIO 17 (6-25); CALCIUM 8.9 mg/dL (8.4-10.2); CARBON DIOXIDE 25 mmol/L (22-29); CHLORIDE 106 mmol/L (98-107); EST GLOMERULAR FILTRATION RATE > 60 ML/MIN (60-); GLUCOSE 104 mg/dL (74-118); SODIUM 138 mmol/L (136-145)
--- NOTE | 2018-12-27 08:01 | NUR ---
Rcvd patient in report this am. Patient is asleep in bed. No s/s of distress noted
[2018-12-27] MEDS: FAMOTIDINE 20 MG TAB PO SCH ×2 (09:01→17:17)
[2018-12-27] MEDS: RIVAROXABAN 15 MG TABLET PO SCH ×2 (09:01→17:17)
--- NOTE | 2018-12-27 12:15 | NUR ---
CM to bedside to discuss [facility] patients rights. IMM discussed and signature obtained from patient. Patient verbalized understanding of discussion. Copy of IMM to chart and copy left in Transition in Care folder.
--- NOTE | 2018-12-27 13:12 | Progress Note ---
DATE: 12/27/2018 Medicine Progress Note SUBJECTIVE: The patient is doing well today with no complaints. She is afebrile. Her white count is slightly elevated, but I discussed this with Dr. Green over the phone and reviewed her chart from the records and the clinic, seems like her white count was always in the low 20s. During our conversation, it is felt that the patient likely has some sort of myeloproliferative disorder. Clinically, she is doing well, afebrile, no complaints, no symptoms at all. OBJECTIVE: VITAL SIGNS: Temperature is 96.3, pulse 93, respiratory rate is 21, blood pressure is 120/58, and pulse ox is 99% on room air. GENERAL: Not in acute distress. Alert and oriented x3. Cooperative on examination. HEENT: Head is normocephalic and atraumatic. Eyes; pupils are equal, round, and reactive to light bilaterally. Extraocular movements are intact bilaterally. Throat, no evidence of erythema or exudates in the posterior pharynx. Has poor dentition. NECK: Supple. Good range of motion. PULMONARY: Clear to auscultation bilaterally. No wheezing, no rales, no rhonchi, no crackles appreciated. CARDIOVASCULAR: Positive S1, S2. No murmurs, rubs, or gallops appreciated. ABDOMEN: Soft, nondistended, and nontender to palpation. Bowel sounds present. MUSCULOSKELETAL: Strength is 5/5 throughout. No evidence of any muscle deficits on examination. No weakness appreciated. NEUROLOGICAL: Cranial nerves 2 through 12 grossly intact. No evidence of any neurological deficits on exam. SKIN: Intact. Warm to touch. Good cap refill. PSYCHIATRIC: Normal affect and mood. EXTREMITIES: No edema. Good range of motion throughout. LAB FINDINGS: Show white count was 23, hemoglobin 16, hematocrit is 51, and platelets of 504. Coagulation; PT 21, INR 1.8, and PTT 57. Chemistry; sodium 138, potassium 4, chloride 106, bicarb 25, anion gap of 11, BUN is 12, creatinine is 0.7, glucose is 104, calcium is 8.9. IMAGING: None. IMPRESSION: 1. Acute pulmonary embolism with underlying pulmonary infarct. 2. Leukocytosis, likely complicated urinary tract infection, pulmonary infarction or possibly myeloproliferative disorder. 3. Hypertension. 4. History of small cell lung cancer, being followed up by Dr. Green, Oncology. PLAN: At this time, in relation to her pulmonary embolism, she will continue with Xarelto. In relation to her underlying urinary tract infection treated as an outpatient, she will continue with IV cefepime. I discussed the case with Dr. Green, who is her nursing teacher/oncologist by phone. We discussed the patient's white count and the rest of her labs. It seems like back in October of this year, her white count was 21. It seems like as he was trending the white count, white count has always been high in the 20s. At this time, he feels like the patient likely has some sort of myeloproliferative disorder. We also discussed that she has been afebrile, asymptomatic with no symptoms. He feels that the likely etiology of her white count being high, her hemoglobin being high, and her platelets being high is likely a myeloproliferative disorder and there is no further workup needed at this time here in the hospital and he will see her as an outpatient. I discussed this with the patient and her at bedside. They seemed to have agreed with the plan of care. They would like to wait one more day overnight to see if her white count improves; if they are comfortable tomorrow, they will be discharged and follow up with Dr. Green. Dr. Green states that he will be more than happy to see them early next week to be further evaluated. At this time, I am going to monitor overnight and get repeat labs, continue with IV antibiotics. The patient and verbalized understanding and agrees with plan of care. MD KOKO Bennett/ANIA /[id number]
--- NOTE | 2018-12-27 13:16 | NUR ---
Patient is AAOx3. Patient lung farah clear to auscultation. No shortness of breath noted. Bowel sounds present x4. 1+ edema noted to left lower extremity. Patient ambulates with a rolling walker. NO c/o pain. No s/s of distress noted
--- NOTE | 2018-12-27 14:13 | Progress Note ---
DATE: 12/27/2018 Cardiology Progress Note SUBJECTIVE: The patient denies chest pain or shortness of breath. OBJECTIVE: VITAL SIGNS: Temperature 96.3 degrees, pulse 93, respiratory rate 21, blood pressure 120/58, oxygen saturation 99% on room air. GENERAL: Awake, alert, in no acute distress. LUNGS: Clear to auscultation bilaterally. No wheezes or crackles. CARDIOVASCULAR: Normal rate, regular rhythm. No murmur. Normal S1, S2. ABDOMEN: Soft, nontender. EXTREMITIES: 1+ pitting edema on the left. CARDIAC MEDICATIONS: Rivaroxaban 50 mg p.o. b.i.d. LABORATORY DATA: WBC 23.35, hemoglobin 16.1, hematocrit 51.2, platelets 504. Sodium 138, potassium 4, chloride 106, CO2 of 25, BUN 12, creatinine 0.7. TELEMETRY: Normal sinus rhythm. IMPRESSION: 1. Segmental and subsegmental pulmonary emboli with left lower lobe patchy airspace opacity, adjacent small pleural effusion, which may represent an area of associated evolving pulmonary infarction. 2. Acute left lower extremity deep vein thrombosis. 3. Leukocytosis. 4. History of small cell lung cancer. 5. Coronary artery disease suggested by coronary atherosclerosis on CT chest. RECOMMENDATIONS: Continue Xarelto 15 mg p.o. b.i.d. Monitor patient on telemetry while in-house. She has been hemodynamically stable and can be discharged from a cardiac standpoint. Antibiotics per primary service. She was counseled on the importance to follow up with her outpatient oncologist for age-appropriate cancer screening. She will need ischemic evaluation for her coronary atherosclerosis as an outpatient. Thank you for this consult. We will continue to follow. Shannon Saeed MD ABS/MODL /[id number]
[2018-12-27] MEDS: PRAVASTATIN 20 MG TAB PO SCH (21:28)
[2018-12-28 00:11] VITALS: BP 128/62
[2018-12-28 04:15] VITALS: BP 122/57
[2018-12-28] MEDS: CEFEPIME 1GM/NS 0.9% 50 ML 50 ML IV SCH (06:00)
[2018-12-28 06:40] LABS: BASOPHILS # (AUTO) 0.3 (0.0-0.1); BASOPHILS % 1.2 % (0.0-1.0); EOSINOPHILS % 4.3 % (0.0-6.0); HEMATOCRIT 49.6 % (34.2-44.1); HEMOGLOBIN 15.7 g/dL (12.0-16.0); LYMPHOCYTES # (AUTO) 0.9 (1.0-3.2); LYMPHOCYTES % 3.7 % (18.0-39.1); MEAN CORPUSCULAR HEMOGLOBIN 25.4 pg (28-32); MEAN CORPUSCULAR HGB CONC 31.7 g/dL (31-35); MEAN CORPUSCULAR VOLUME 80.1 fL (81-99); MONOCYTES # (AUTO) 2.4 (0.2-0.8); MONOCYTES % 10.2 % (4.4-11.3); NEUTROPHILS # (AUTO) 17.5 (2.1-6.9); NEUTROPHILS % 73.9 % (38.7-80.0); PLATELET COUNT 484 x10e3/uL (140-360); RED BLOOD COUNT 6.19 x10e6/uL (3.6-5.1); RED CELL DISTRIBUTION WIDTH 15.4 % (11.7-14.4)
[2018-12-28 06:57] LABS: ANION GAP 10.1 mmol/L (8-16); BLOOD UREA NITROGEN 15 mg/dL (7-26); BUN/CREATININE RATIO 21 (6-25); CALCIUM 8.5 mg/dL (8.4-10.2); CARBON DIOXIDE 23 mmol/L (22-29); CHLORIDE 108 mmol/L (98-107); EST GLOMERULAR FILTRATION RATE > 60 ML/MIN (60-); GLUCOSE 91 mg/dL (74-118); POTASSIUM 4.1 mmol/L (3.5-5.1); SODIUM 137 mmol/L (136-145)
--- NOTE | 2018-12-28 07:32 | NUR ---
Received patient and walking rounds complete. Patient awake resting at this time, no signs of distress. Bed low, wheels locked, side rails x2, call light in reach. Will continue to monitor.
[2018-12-28 07:58] VITALS: BP 138/61
[2018-12-28 07:58] LABS: BAND NEUTROPHILS % (MANUAL) 1 %; EOSINOPHILS % (MANUAL) 5 % (0-7); LYMPHOCYTES % (MANUAL) 4 % (19-48); METAMYELOCYTES % (MANUAL) 2 % (0-0); MONOCYTES % (MANUAL) 12 % (3.4-9.0); NEUTROPHILS % (MANUAL) 75 % (40-74); PLATELET ESTIMATE SLIGHTLY INCREASED; RBC MORPHOLOGY COMMENT NORMAL
[2018-12-28 07:59] LABS: PLATELET MORPHOLOGY COMMENT NORMAL
[2018-12-28] MEDS: FAMOTIDINE 20 MG TAB PO SCH (08:34)
[2018-12-28] MEDS: RIVAROXABAN 15 MG TABLET PO SCH (08:34)
[2018-12-28 09:29] VITALS: BP 138/61
--- NOTE | 2018-12-28 09:50 | NUR ---
Patient A/O X3, even respirations on RA. No shortness of breath at this time. Lung sounds clear to auscultation. Left AC 20 gauge IV SL. Skin intact, left lower extremity 1+ non-pitting edema. Ambulatory with standby assist. Call light in reach, will continue to monitor.
[2018-12-28 11:22] VITALS: BP 116/49
[2018-12-28] MEDS ORDERED: CEFDINIR300 MG PO (11:58)
--- NOTE | 2018-12-28 12:55 | NUR ---
Removed patients IV. Catheter tip intact and pressure dressing applied.
--- NOTE | 2018-12-28 13:06 | NUR ---
Patient discharged from facility. Patient gathered all personal belongings and discharge instructions including follow up information/prescriptions. Left unit in wheelchair and went home via private auto.
--- NOTE | 2018-12-29 01:09 | Discharge Summary ---
FINAL DISCHARGE DIAGNOSES: 1. 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 2. Leukocytosis, this is likely secondary to myeloproliferative disorder and I have discussed this with Dr. Green, Oncology, who is her primary ticket puller and agreed to discharge the patient to follow up in his office on Sunday of next week. 3. Probable urinary tract infection from an outpatient treatment. 4. Hypertension. 5. History of small cell lung cancer, currently on treatment, being followed up by Dr. Green, Oncology. CONSULTANTS: Cardiology. PHYSICAL EXAMINATION: VITAL SIGNS: Temperature is 96.7, pulse 86, respiratory rate is 18, blood pressure 116/49, and pulse ox 93% on room air. LAB FINDINGS: Show white count is 23 and on admission it was 27, hemoglobin is 15, hematocrit is 49, platelets of 484. Coagulation, PT 21, PTT 57, INR 1.4. Chemistry, sodium 137, potassium 4.1, chloride 108, bicarb 23, anion gap of 10, BUN 16, creatinine 0.7, calcium is 8.5. MICROBIOLOGY: None. IMAGING STUDIES: CT chest PE protocol shows pulmonary emboli within segmental and subsegmental arteries of the left lower lobe. Left lower lobe patchy airspace opacity, adjacent small effusion may reflect an area associated evolving pulmonary infarction. Indeterminate confluent mall-like densities within the right lower lobe and posterior aspect of the lobe after resolution of acute . Coronary atherosclerosis. HOSPITAL COURSE: This is an 83-year-old female, who came in as a direct admission due to complaints of shortness of breath and recent diagnosis of pulmonary embolism. Recent CT PE protocol was consistent with a pulmonary embolism. The patient was started on outpatient Xarelto by the apron trimmer, but came in to be further monitored and evaluated. Her CT scan here revealed pulmonary emboli seen. Cardiology was consulted as well to monitor the patient. The patient was also being treated for outpatient urinary tract infection with oral Levaquin. While here, the patient's white count was 27, but downtrended to 23. On further investigation, I spoke with the patient's hematology/oncologist, Dr. Green, who mentioned to me that she has underlying myeloproliferative disorder and that he has been treating her with phlebotomy as an outpatient for polycythemia vera. In looking back at his records back in October of 2018, the patient had white count of 21 and also had some thrombocytosis at that time. Currently, clinically she is doing well. She is afebrile. Vital signs were stable. Labs reviewed and she looks great. She had no clinical symptoms of any infection, cough, congestion, or any other complaints. After discussing this case further with Dr. Green, he agreed to see the patient as an outpatient and an appointment has been made for Monday, December 31, 2018, at approximately 10 a.m. The patient states that she is doing well with no issues. I discussed this with the and the patient at bedside and they have agreed to follow up with Dr. Green accordingly. Though her white count is elevated, clinically she is doing well. She has no symptoms whatsoever and she is afebrile and according to Dr. Green, he feels comfortable to discharge the patient and to follow up with him in the office. At this time, the patient has been cleared by Cardiology and also by Oncology by phone to be discharged home. On the day of discharge, vital signs stable, labs being stable. The patient is seen, evaluated, and examined thoroughly on the day of discharge with no other complaints. The patient verbalized understanding and agrees with plan of care to follow up as an outpatient with primary care physician in 1 week and Hematology, Dr. Green, on December 31, 2018, at 10 a.m. for further evaluation of her elevated white count and likely myeloproliferative disorder. MEDICATIONS: See med reconciliation form including Omnicef 300 mg one tab p.o. b.i.d. x7 days. Also, the patient already has Xarelto at home, which she verbalized to me, which was given to her by the Cardiology attending as an outpatient. She currently still has that. DISPOSITION: Home. CONDITION: Stable. DIET: Heart healthy. In the event of any worsening symptoms, the patient is advised to come back to the ED for further evaluation. Discharge summary took greater than 35 minutes. MD KOKO Bennett/ANIA /[id number]
== END 2018-12-28 13:07 | disposition home or self-care (01) | DRG 176 ==
LOC: ER 19:15 → ERHOLD 20:25 → MED/SURG 22:27 → OBSVTOIN 12-26 13:22
PROVIDERS: ADMIT Internal Medicine; ATTEND Internal Medicine
DX: I26.09 Other pulmonary embolism with acute cor pulmonale (principal); I82.422 Acute embolism and thrombosis of left iliac vein; I82.432 Acute embolism and thrombosis of left popliteal vein; I82.442 Acute embolism and thrombosis of left tibial vein; N39.0 Urinary tract infection, site not specified; C94.6 Myelodysplastic disease, not elsewhere classified; Z88.0 Allergy status to penicillin; Z88.2 Allergy status to sulfonamides; I10 Essential (primary) hypertension; E78.5 Hyperlipidemia, unspecified; Z79.82 Long term (current) use of aspirin; Z85.118 Personal history of other malignant neoplasm of bronchus and lung; I25.10 Atherosclerotic heart disease of native coronary artery without angina pectoris; D45 Polycythemia vera
CPT/HCPCS: 36415; 80048; 80053; 82550; 82553; 84439; 84443; 84484; 85025; 85610; 85730; 93005; 99284; G0378; J0692; J7050

== ENCOUNTER → 2018-12-24 | Outpatient (CLI) | payer MEDICARE ==
[~2018-12-24] MED LIST: ASPIRIN81 MG PO; IOPAMIDOL 370 MG/ML 200 ML INFUS..BTL INJ ONE; LEVAQUIN500 MG PO; LISINOPRIL5 MG PO; PRAVASTATIN SOD20 MG PO; SODIUM CHLORIDE 0.9% 50ML 50 ML ONE; XARELTO15 MG PO; XARELTO20 MG PO
[2018-12-24 17:48] LABS: BLOOD UREA NITROGEN 23 mg/dL (7-26); BUN/CREATININE RATIO 32 (6-25); CREATININE, SERUM 0.72 mg/dL (0.57-1.11); EST GLOMERULAR FILTRATION RATE > 60 ML/MIN (60-)
--- NOTE | 2018-12-24 19:00 | Diagnostic Imaging Report ---
CT CHEST WITH CONTRAST HISTORY: Tachycardia, history of blood clot in left leg, small cell lung cancer, history of appendectomy and hysterectomy COMPARISON: None available. TECHNIQUE: CT scan of the chest WITH intravenous contrast, using PE protocol. The chest was scanned utilizing a multidetector helical scanner from the lung apex through the level of the adrenal glands. Thin section reconstructions were obtained with special concentration on the pulmonary arteries. IV CONTRAST: 100 cc of Isovue-370. PROTOCOL: PE RADIATION DOSE: Total DLP: 454.57 mGy*cm Dose modulation, iterative reconstruction, and/or weight based adjustment of the mA/kV was utilized to reduce the radiation dose to as low as reasonably achievable. COMPLICATIONS: None DISCUSSION: Lungs: * Mild to moderate bilateral upper lung zone predominant centrilobular emphysema. * A confluent 4.8 cm (AP) x 4.1 cm (ML) x 1.7 cm (CC) density within the right lower lobe with irregular margins. * A confluent 2.6 cm (AP) x 3.7 cm (ML) x 2.3 cm (CC) density at the posterior left lung apex abutting the pleural surface with irregular margins and adjacent architectural distortion and bronchiectasis. * Patchy airspace consolidation at the dependent portion of the inferior left lower lobe. Vessels: * Filling defects within arteries within multiple left lower lobe segmental and subsegmental pulmonary arteries on the majority are nonocclusive. * Scattered atherosclerotic vascular calcifications, including the coronary arteries. Airways: Nonspecific bronchial wall thickening. Pleura: Small low-density left pleural effusion. Heart and mediastinum: Trace pericardial fluid, within physiologic limits. Abdomen: Limited evaluation of the upper abdomen. Multiple fluid densities within the liver, the largest 1.5 cm within the left lobe and additional too small to characterize hypodensities, statistically most likely additional small cysts. Splenomegaly. Lymph nodes: No pathologically enlarged lymph node. Bones: Diffusely decreased mineralization of the osseous structures limits bone detail. Multifocal degenerative changes. No aggressive osseous lesion. Soft tissues: Unremarkable IMPRESSION: 1. Pulmonary emboli within segmental and subsegmental arteries of the left lower lobe. 2. Left lower lobe patchy airspace opacity and adjacent small effusion, may reflect an area of associated evolving pulmonary infarction. 3. Indeterminant confluent mass like densities within the right lower lobe and posterior aspect of the left upper lobe, after resolution of the acute process, recommend short-term surveillance follow-up CT to evaluate for resolution. The differential diagnosis includes scarring, evolving infectious/inflammatory process, local recurrence or metastatic disease. 4. Coronary atherosclerosis. A contact phone number for the ordering provider was not easily accessible by the hospital radiology staff. Therefore, Dr. Gordon from the Emergency Department was notified via phone on December 24, 2018 at 1852, per request, the technologists were subsequently asked to transport the patient to the Emergency Department for a higher level of monitoring and subsequent treatment per the Emergency Department. Signed by: Dr. Robert Bower D.O., M.M.M. on 12/24/2018 6:57 PM
== END ==
LOC: CT 17:10
PROVIDERS: ATTEND Internal Medicine
DX: R00.0 Tachycardia, unspecified (principal); I26.99 Other pulmonary embolism without acute cor pulmonale; R91.8 Other nonspecific abnormal finding of lung field; Z86.718 Personal history of other venous thrombosis and embolism
CPT/HCPCS: 36415; 71260; 82565; 84520

== ENCOUNTER → 2019-11-13 | Outpatient (CLI) | payer MEDICARE ==
[~2019-11-13] MED LIST changes: +CEFDINIR300 MG PO; +XARELTO15 MG PO; +XARELTO20 MG PO
== END ==
LOC: CARD 10:40
PROVIDERS: ATTEND Internal Medicine
DX: R42 Dizziness and giddiness (principal); I65.22 Occlusion and stenosis of left carotid artery; I70.8 Atherosclerosis of other arteries
CPT/HCPCS: 93880